=== PATIENT | female | born 1955 | race African-American/Black ===

== ENCOUNTER 2017-01-03 16:24 | Emergency (ER) | payer OTHER ==
[~2017-01-03] VITALS: Ht 167.6 cm; Wt 75.0 kg
[~2017-01-03 16:24] MED LIST: AMOX250C4 PO; HYDR25TA PO; IBUP-2070 PO; LISI40TA4 PO; SERT100T12 PO; [UNRECOGNIZED DRUG - CODE] PO
[2017-01-03] MEDS ORDERED: ACET-2247 PO (16:34)
[2017-01-03] MEDS ORDERED: CEFTAROLINE 600 MG/D5W 250 ML IV ONE (18:30)
[2017-01-03] MEDS ORDERED: KETOROLAC TROMETHAMINE 30 MG/ML VIAL IVP ONE (18:30)
[2017-01-03] MEDS ORDERED: MORPHINE SULFATE 2 MG/ML SYRINGE IVP ONE (18:30)
[2017-01-03] MEDS ORDERED: ONDANSETRON HCL 4 MG/2 ML VIAL IVP ONE (18:30)
[2017-01-03 20:46] VITALS: BP 125/75
== END 2017-01-03 20:48 | disposition home or self-care (01) ==
LOC: EMS 16:27
DX: L03.315 Cellulitis of perineum (principal); I10 Essential (primary) hypertension
CPT/HCPCS: 96365; 96366; 96375; 99285; J0712; J1885; J2270; J2405

== ENCOUNTER 2019-10-24 14:59 | Emergency (ER) | payer OTHER ==
[~2019-10-24] VITALS: Ht 170.2 cm; Wt 72.7 kg
[~2019-10-24 14:59] MED LIST changes: +ACET-2247 PO; -AMOX250C4 PO; -IBUP-2070 PO; -[UNRECOGNIZED DRUG - CODE] PO
[2019-10-24] MEDS ORDERED: CHOL50004 PO (15:35)
[2019-10-24] MEDS ORDERED: ACET-66 PO (18:15)
[2019-10-24] MEDS ORDERED: METHOCARBAMOL 500 MG TABLET PO ONE (18:15)
[2019-10-24] MEDS ORDERED: KETOROLAC TROMETHAMINE 30 MG/ML VIAL IM ONE (18:15)
[2019-10-24] MEDS ORDERED: LIDOCAINE 5% TRANSDERMAL PATCH TD ONE (18:15)
[2019-10-24 19:25] VITALS: BP 139/78
== END 2019-10-24 20:10 | disposition home or self-care (01) ==
LOC: EMS 15:01
DX: S39.012A Strain of muscle, fascia and tendon of lower back, initial encounter (principal); I10 Essential (primary) hypertension; Z79.899 Other long term (current) drug therapy; X58.XXXA Exposure to other specified factors, initial encounter; Y93.89 Activity, other specified; Y92.89 Other specified places as the place of occurrence of the external cause; Y99.8 Other external cause status
CPT/HCPCS: 81002; 96372; 99283; J1885